=== PATIENT | male | born 1985 | race Caucasian/White ===

== ENCOUNTER 2018-03-04 19:29 | Emergency (ER) | payer SELFPAY ==
[~2018-03-04] VITALS: Ht 162.6 cm; Wt 61.2 kg
--- NOTE | 2018-03-04 19:35 | NUR ---
BIBRA 61 FOR OVERDOSE USING HEROINE. PER RA GAVE NARCAN 2MG VIA IV. NAD NOTED, VSS, RESP EVEN AND UNLABORED, PT WAS PUT ON MONITOR. WAITING FOR MD MANN.
--- NOTE | 2018-03-04 23:09 | NUR ---
Patient is resting comfortably in bed with eyes closed. Easily aroused. VSS
--- NOTE | 2018-03-04 23:10 | NUR ---
IV removed. Catheter intact and site benign. Pressure and 4x4 applied to site. No bleeding noted.
[2018-03-04 23:13] VITALS: BP 129/70
--- NOTE | 2018-03-04 23:14 | NUR ---
pt left without discharged paper.
== END 2018-03-04 23:15 | disposition home or self-care (01) ==
LOC: ER 19:30
DX: S05.11XA Contusion of eyeball and orbital tissues, right eye, initial encounter (principal); F11.10 Opioid abuse, uncomplicated; K04.7 Periapical abscess without sinus; Y92.89 Other specified places as the place of occurrence of the external cause; Y08.89XA Assault by other specified means, initial encounter; Y93.89 Activity, other specified; Y92.811 Bus as the place of occurrence of the external cause; Y99.8 Other external cause status
CPT/HCPCS: 70450; 70486; 99284; A4606; Z7610